=== PATIENT | female | born 1955 | race Caucasian/White ===

== ENCOUNTER 2016-08-10 05:36 | Day surgery (SDC) | payer OTHER, MEDICARE ==
[~2016-08-10] VITALS: Ht 165.1 cm; Wt 58.7 kg
[~2016-08-10 05:36] MED LIST: ASPIRIN 81M81 MG/TA2 PO; B COMPLEX #11 TA1 PO; BETAPACE 80MG80 MG PO; CALCIUM 500500 M2 PO; CEPHALEXIN500 M1 PO; Calcium PO; DESYREL 100MG100 MG PO; DUO-KAPS1 CAP PO; FERROUS SULFATE65 MG PO; IRON325 M1 PO; IRON325 MG PO; IRON65 MG PO; LEVOXYL0.075 MG PO; LEVOXYL0.3 MG PO; METROCREAM CREA45 GM TP; MULTI VITAMINS1 TAB PO; MULTIPLE VITAMI1 CAP PO; NEXIUM 40MG40 MG PO; NORCO 325 MG-7.1 TAB PO; OSCAL 500 TAB500 MG PO; PERCOCET 325 MG1 TA2 PO; PROLIA60 MG/ML SC; SIMVASTATIN40 MG PO; SYNTHROID 0.0.025 MG PO; SYNTHROID0.075 MG/T PO; SYNTHROID0.3 MG PO; TRAZADONE HYDR100 MG PO; VFEND 200MG200 MG PO; VITAMIN B125000 MCG SL; VITAMIN C500 MG PO; VITAMIN D 400400 IU PO; VITAMIN D1000 IU PO; Vitamin D PO; WELLBUTRIN SR150 M1 PO; WELLBUTRIN XL300 MG PO; XARELTO20 MG PO; ZOFRAN ODT4 MG PO; ZOLOFT 50MG50 MG PO; [UNRECOGNIZED DRUG - OTHER]; [UNRECOGNIZED DRUG - OTHER] PO; synthroid PO
[2016-08-10 06:38] VITALS: BP 87/59; PULSE 79; TEMP 98
[2016-08-10] MEDS ORDERED: SYNTHROID0.2 MG/TAB PO (06:45)
[2016-08-10] MEDS ORDERED: NATURAL MAGNES200 MG PO (06:47)
[2016-08-10 08:25] VITALS: BP 84/49; PULSE 74; TEMP 98.1
[2016-08-10] MEDS ORDERED: PERCOCET 325 MG1 TA2 PO (08:27)
[2016-08-10 08:40] VITALS: BP 87/48; PULSE 77
[2016-08-10 09:00] VITALS: BP 85/50; PULSE 75
[2016-08-10 09:35] VITALS: BP 82/50; PULSE 74
[2016-08-10 11:05] VITALS: BP 96/55; PULSE 77
== END 2016-08-10 11:30 | disposition home or self-care (01) ==
LOC: SDCO 05:36
DX: Z85.528 Personal history of other malignant neoplasm of kidney (principal); F41.9 Anxiety disorder, unspecified; Z85.810 Personal history of malignant neoplasm of tongue; Z86.14 Personal history of Methicillin resistant Staphylococcus aureus infection; Z95.0 Presence of cardiac pacemaker; Z79.899 Other long term (current) drug therapy
CPT/HCPCS: C1788; J0690; J1644; J2250; J2405; J2704; J3010; J7120; Q9967

== ENCOUNTER 2016-08-15 09:00 | Outpatient (RCR) | payer OTHER, MEDICARE ==
[2016-08-14 17:05] LABS: HEMATOCRIT 25.5 % (37.0-47.0); HEMOGLOBIN 8.1 g/dl (12.5-16.0)
[2016-08-15] VITALS (9 sets, daily range): BP systolic 107–124; BP diastolic 62–83; PULSE 54–80; TEMP 97.9–98.7
[~2016-08-15] VITALS: Ht 165.1 cm; Wt 59.0 kg
== END 2016-08-15 14:39 | disposition home or self-care (01) ==
LOC: EUO 09:00
PROVIDERS: Internal Medicine
DX: C65.2 Malignant neoplasm of left renal pelvis (principal); Z45.2 Encounter for adjustment and management of vascular access device
CPT/HCPCS: J1644; J7050; P9016

== ENCOUNTER → 2016-08-15 | Outpatient (CLI) | payer OTHER, MEDICARE ==
[~2016-08-15] MED LIST changes: +NATURAL MAGNES200 MG PO; +SYNTHROID0.2 MG/TAB PO
== END ==
LOC: COL.VAS 09:08
DX: I82.431 Acute embolism and thrombosis of right popliteal vein (principal); R25.2 Cramp and spasm; M79.89 Other specified soft tissue disorders

== ENCOUNTER → 2016-08-27 | Outpatient (CLI) | payer OTHER, MEDICARE | LOC: COL.RAD 11:31 | DX: C64.9 Malignant neoplasm of unspecified kidney, except renal pelvis (principal); Z95.828 Presence of other vascular implants and grafts ==

== ENCOUNTER → 2016-10-19 | Outpatient (CLI) | payer OTHER, MEDICARE | LOC: COL.RAD 07:30 | DX: C65.2 Malignant neoplasm of left renal pelvis (principal); C78.7 Secondary malignant neoplasm of liver and intrahepatic bile duct; D38.1 Neoplasm of uncertain behavior of trachea, bronchus and lung; R59.1 Generalized enlarged lymph nodes; R93.7 Abnormal findings on diagnostic imaging of other parts of musculoskeletal system | CPT/HCPCS: Q9967 ==